=== PATIENT | female | born 2000 | race African-American/Black ===

== ENCOUNTER 2021-04-03 14:16 | Emergency (ER) | payer OTHER ==
[~2021-04-03] VITALS: Ht 160 cm; Wt 81.7 kg
[~2021-04-03 14:16] MED LIST: ACETAMINOPHEN-1 EAC1 PO; COLACE100 MG PO; IBUPROFEN 400400 M2 PO; IBUPROFEN 600600 M1 PO; KEFLEX500 MG PO; MIRALAX17 GM PO; NOHOMEMEDICATIONS; SANI-SUPP GLYC1 SUP1 RECTAL
[2021-04-03 17:44] VITALS: BP 138/78
== END 2021-04-03 17:45 | disposition home or self-care (01) ==
LOC: M.ERS 14:16
DX: N63.21 Unspecified lump in the left breast, upper outer quadrant (principal); Z77.22 Contact with and (suspected) exposure to environmental tobacco smoke (acute) (chronic)